=== PATIENT | male | born 1945 | race Caucasian/White ===

== ENCOUNTER → 2016-12-06 | Outpatient (CLI) | payer MEDICARE, BC ==
[~2016-12-06] MED LIST: ALBU17IN INH; BACITAB3 PO; CEPH500C PO; FLOM5CAP PO; FLON1SPR; IBUP800T23 PO; LEVA500T PO; LEVO100T5 PO; LISI-542 PO; PYRI200T5 PO
--- NOTE | 2016-12-06 13:21 | REP ---
Chest x-ray: Two views. History: Cough. URI symptoms for 2 weeks. Comparison chest x-ray February 17, 2016. Findings: The lungs are symmetrically aerated and clear. Pleural angles are sharp. Heart size is normal. No significant bony abnormality is seen. Impression: No active disease. Signed by Adiel Steven MD 12/06/2016 01:38 P
[2016-12-06 13:55] LABS: CONTROL LINE MONO INT CTR LINE PRESENT
== END ==
LOC: M WUC 10:59
PROVIDERS: ATTEND Nurse Practitioner Family
DX: R05 Cough (principal)

== ENCOUNTER → 2017-08-16 | Outpatient (CLI) | payer MEDICARE, BC ==
[~2017-08-16] MED LIST changes: +BACITAB PO; -BACITAB3 PO; +IBUP1TAB7 PO; -IBUP800T23 PO; +LEVA1TAB2 PO; -LEVA500T PO; +PYRI1TAB5 PO; -PYRI200T5 PO
--- NOTE | 2017-08-16 14:54 | REP ---
Left lower extremity vein duplex ultrasound: The deep veins demonstrate normal compression, normal Doppler color flow and normal Doppler waveforms with respiration and augmentation at multiple levels from the popliteal vein to the common femoral vein. Impression: There is no deep vein thrombus in the left lower extremity. Signed by Kirk Moreno MD 08/16/2017 02:46 P
== END ==
LOC: M RAD 14:20
PROVIDERS: ATTEND Nurse Practitioner Adult Health
DX: R22.42 Localized swelling, mass and lump, left lower limb (principal)

== ENCOUNTER → 2017-11-02 | Outpatient (REF) | payer MEDICARE, BC ==
[2017-11-05 02:09] LABS: PSA % FREE 21.8 % (.); PSA FREE 1.48 ng/mL; PSA TOTAL 6.8 ng/mL (0.0-4.0)
== END ==
LOC: M LAB REF 16:34
PROVIDERS: ATTEND Internal Medicine
DX: R97.20 Elevated prostate specific antigen [PSA] (principal)

== ENCOUNTER → 2018-02-14 | Outpatient (REF) | payer MEDICARE, BC ==
[2018-02-15 11:02] LABS: HEPATITIS C VIRUS ABY INDEX < 0.0 INDEX (<0.8)
== END ==
LOC: M LAB REF 17:24
DX: Z01.89 Encounter for other specified special examinations (principal)
CPT/HCPCS: 86803

== ENCOUNTER → 2019-02-28 | Outpatient (REF) | payer MEDICARE, BC ==
[~2019-02-28] MED LIST changes: +FLOM0.4C39 PO; -FLOM5CAP PO
[2019-02-28 17:26] LABS: FOLATE 13.4 NG/ML
== END ==
LOC: M LAB REF 16:42
PROVIDERS: ATTEND Internal Medicine
DX: G62.9 Polyneuropathy, unspecified (principal)

== ENCOUNTER → 2020-12-28 | Outpatient (REF) | payer MEDICARE, BC ==
[~2020-12-28] MED LIST changes: -LISI-542 PO; +LISI-898 PO
== END ==
LOC: M LAB REF 18:16
PROVIDERS: ATTEND Physician Assistant Medical
DX: Z20.828 Contact with and (suspected) exposure to other viral communicable diseases (principal)

== ENCOUNTER → 2021-01-16 | Outpatient (CLI) | payer MEDICARE, BC ==
--- NOTE | 2021-01-16 17:10 | REP ---
INDICATION: SOB COMPARISON: 12/06/2016. TECHNIQUE: PA/Lateral FINDINGS: Lungs: Clear, no infiltrate. Heart: Normal in size. Mediastinum: Mediastinal silhouette unremarkable. Pleural angles: Unremarkable.. Bones and soft tissues: Unremarkable. IMPRESSION: No acute pulmonary disease. <Electronically signed by Kirk Hunt > 01/16/21 [id number]
== END ==
LOC: M WUC 14:14
PROVIDERS: ATTEND Physician Assistant Medical
DX: R06.02 Shortness of breath (principal)

== ENCOUNTER → 2021-12-08 | Outpatient (CLI) | payer MEDICARE, BC ==
[~2021-12-08] MED LIST changes: -LISI-898 PO; +LISI5TAB11 PO
== END ==
LOC: M WUC 11:39
PROVIDERS: ATTEND Physician Assistant Medical
DX: R06.01 Orthopnea (principal)

== ENCOUNTER → 2022-08-18 | Outpatient (REF) | payer MEDICARE, BC ==
[2022-08-19 14:08] LABS: PSA % FREE 20.5 % (.); PSA FREE 1.27 ng/mL; PSA TOTAL 6.2 ng/mL (0.0-4.0)
== END ==
LOC: M LAB REF 13:05
PROVIDERS: ATTEND Internal Medicine
DX: R97.20 Elevated prostate specific antigen [PSA] (principal)

== ENCOUNTER → 2022-10-19 | Outpatient (REF) | payer MEDICARE, BC | LOC: M LAB REF 08:35 | PROVIDERS: ATTEND Physician Assistant | DX: R30.0 Dysuria (principal) ==

== ENCOUNTER → 2022-11-17 | Outpatient (REF) | payer MEDICARE, BC ==
[2022-11-17 17:10] LABS: APPEARANCE, URINE MANUAL CLEAR (CLEAR); BILIRUBIN, URINE MANUAL NEGATIVE (NEGATIVE); BLOOD URINE MANUAL NEGATIVE (NEGATIVE); COLOR, URINE MANUAL LT YELLOW (YELLOW); GLUCOSE, URINE (UA) MANUAL NEGATIVE (NEGATIVE); KETONE, URINE MANUAL NEGATIVE (NEGATIVE); LEUKOCYTE ESTERASE, URINE MAN NEGATIVE (NEGATIVE); NITRITE, URINE MANUAL NEGATIVE (NEGATIVE); PROTEIN, URINE MANUAL NEGATIVE (NEGATIVE); SPECIFIC GRAVITY,URINE MANUAL 1.015 (1.002-1.035); UROBILINOGEN, URINE MANUAL NORMAL (NORMAL)
== END ==
LOC: M LAB REF 16:34
PROVIDERS: ATTEND Internal Medicine
DX: Z01.810 Encounter for preprocedural cardiovascular examination (principal)

== ENCOUNTER → 2022-12-02 | Outpatient (REF) | payer MEDICARE, BC | LOC: M LAB REF 16:35 | PROVIDERS: ATTEND Internal Medicine | DX: N40.1 Benign prostatic hyperplasia with lower urinary tract symptoms (principal); R30.0 Dysuria ==

== ENCOUNTER → 2023-07-05 | Outpatient (CLI) | payer MEDICARE, BC | LOC: M WUC 08:53 | PROVIDERS: ATTEND Nurse Practitioner Family | DX: M54.50 Low back pain, unspecified (principal) ==

== ENCOUNTER → 2023-10-10 | Outpatient (REF) | payer MEDICARE, BC ==
[2023-10-11 23:07] LABS: PSA TOTAL 3.8 ng/mL (0.0-4.0)
== END ==
LOC: M LABDRAWC 11:58
PROVIDERS: ATTEND Urology
DX: N40.1 Benign prostatic hyperplasia with lower urinary tract symptoms (principal)

== ENCOUNTER → 2024-08-02 | Outpatient (REF) | payer MEDICARE, BC ==
[2024-08-02 14:35] LABS: PERCENT SATURATION 17.2 % (19.7-50.0)
[2024-08-06 23:13] LABS: Babesia microti NOT DETECTED (NOT DETECT)
[2024-08-07 00:48] LABS: Anaplasma phagocytophilum NOT DETECTED; BORRELIA SPECIES DNA NOT DETECTED (NOT DETECT); Ehrlichia chaffeensis NOT DETECTED
== END ==
LOC: M LAB REF 13:05
PROVIDERS: ATTEND Nurse Practitioner Family
DX: R53.83 Other fatigue (principal)

== ENCOUNTER → 2024-12-28 | Outpatient (REF) | payer MEDICARE, BC ==
[2024-12-28 13:38] LABS: PERCENT SATURATION 10.4 % (19.7-50.0)
[2024-12-28 13:41] LABS: FERRITIN 9.1 NG/ML (10.5-307.3)
== END ==
LOC: M LAB REF 12:38
PROVIDERS: ATTEND Internal Medicine
DX: G60.9 Hereditary and idiopathic neuropathy, unspecified (principal); E61.1 Iron deficiency